=== PATIENT | male | born 1980 | race Two or more races ===

== ENCOUNTER → 2025-01-05 | Emergency (ER) | payer OTHER ==
[~2025-01-05] VITALS: Ht 175.3 cm; Wt 84.4 kg
[~2025-01-05] MED LIST: 0.9 % SODIUM CHLORIDE 1,000 ML IV SCH; CANDESARTAN PO; CIPRO500 MG PO; DIPHENOXYLATE HCL/ATROPINE 1 UDTAB TABLET PO ONE; FAMOTIDINE/PF 20 MG in 0.9 % SODIUM CHLORIDE 8 ML IV PUSH STA; ONDANSETRON HCL 2 MG/ML VIAL IV ONE; PEPCID AC20 MG PO; WELLBUTRIN XL300 MG PO; ZOFRAN8 MG PO
[2025-01-05 11:13] LABS: HEMATOCRIT 48.9 % (39.0-48.0); MEAN CELL VOLUME 84.3 fL (80.0-100.00); MEAN CORPUSCULAR HEMOGLOBIN 28.7 pg (27.00-32.0); MEAN CORPUSCULAR HGB CONC 34.1 g/dl (32.0-36.0); PLATELET COUNT 319 K/uL (150-450); RED CELL DISTRIBUTION WIDTH 13.8 % (11.5-14.5)
[2025-01-05 11:14] LABS: HEMOGLOBIN 16.7 g/dL (13-16.00)
[2025-01-05 11:44] LABS: ALBUMIN 4.1 gm/dL (3.4-5.0); CALCIUM 9.1 mg/dL (8.5-10.1); CREATININE SERUM 1.2 mg/dL (0.70-1.30); GFR 66.08; GLOBULINA 3.8 G/DL (2.4-3.5); POTASSIUM 4.34 mEq/L (3.5-5.1); TOTAL PROTEIN 7.9 gm/dL (6.4-8.2)
== END | disposition home or self-care (01) ==
LOC: ER 09:00
PROVIDERS: General Practice
DX: K52.9 Noninfective gastroenteritis and colitis, unspecified (principal); R11.10 Vomiting, unspecified; R11.0 Nausea; I10 Essential (primary) hypertension; Z91.011 Allergy to milk products